=== PATIENT | female | born 1955 | race Caucasian/White ===

== ENCOUNTER → 2018-09-17 | Outpatient (CLI) | payer OTHER ==
--- NOTE | 2018-09-17 13:03 | Diagnostic Imaging Report ---
Exam: KUB - 2 views Clinical History: Renal calculus. Comparison: None. Findings: No specific evidence of nephrolithiasis. There is a 1.1 cm hyperdensity adjacent to the left L3 transverse process. No evidence of calcification overlying the kidneys. A hyperdensity overlying the left mid kidney is favored to represent detector artifact. Calcified phleboliths in the pelvis. Nonobstructive bowel gas pattern. No acute osseous abnormality. Impression: A 1.1 cm hyperdensity adjacent to the left L3 transverse process may represent a ureteral stone. Signed by: Dr. Cande Sanchez MD on 09/17/2018 1:00 PM
== END ==
LOC: RAD 11:16
PROVIDERS: ATTEND Urology
DX: N20.0 Calculus of kidney (principal)
CPT/HCPCS: 74018

== ENCOUNTER → 2019-03-11 | Day surgery (SDC) | payer OTHER ==
[2019-03-08 12:18] LABS: ANION GAP 10.4 mmol/L (8-16); BLOOD UREA NITROGEN 16 mg/dL (7-26); BUN/CREATININE RATIO 21 (6-25); CALCIUM 9.2 mg/dL (8.4-10.2); CARBON DIOXIDE 29 mmol/L (22-29); CHLORIDE 102 mmol/L (98-107); CREATININE, SERUM 0.78 mg/dL (0.57-1.11); EST GLOMERULAR FILTRATION RATE > 60 ML/MIN (60-); GLUCOSE 86 mg/dL (74-118); POTASSIUM 3.4 mmol/L (3.5-5.1); SODIUM 138 mmol/L (136-145)
[~2019-03-11] MED LIST: ALLERGY RELIEF10 M4 PO; ATORVASTATIN CA10 MG PO; BUPIVACAINE HCL 0.5% INJ 30 ML VIAL INJ ONE; CLINDAMYCIN 600MG / 50ML 50 ML IV ONE; DEXAMETHASONE SOD PHOS INJ 4 MG/ML VIAL ONE; HYDROCHLOROTHIA25 MG PO; IBANDRONATE SO150 MG PO; LIDOCAINE 2%/ EPINEPHRINE 20ML MDV ONE; LIDOCAINE HCL 2% LOCAL INJ 5 ML SDV VIAL INJ ONE; LISINOPRIL2.5 MG PO; MIDAZOLAM HCL 2 MG/2 ML VIAL ONE; MYRBETRIQ50 MG PO; ONDANSETRON HCL INJ 2MG/ML 2ML 2 MG/ML VIAL ONE; PIPER-TAZ 3.375 GM 50 ML ONE; PROPOFOL IV EMULSION 10 MG/ML 20 ML VIAL ONE; ROCURONIUM BROMIDE 10 MG/ML 5ML VIAL ONE; SEVOFLURANE INHAL SOLN 250 ML PEN BTL ONE; SUCCINYLCHOLINE CHLORIDE 20 MG/ML 10ML VIAL ONE
--- OUTSIDE RECORDS SUMMARY | 2019-03-11 10:34 | XMS REPORT | Summary of Care ---
Author Author [facility] Organization [facility] Address Unknown Phone Unavailable Care Team Providers Care Retirement Plan Counselor Name Role Phone Kecia Hurtado MD [employer] [employer] [facility] Reason for Visit * Reason Comments Follow Up Encounter Details Care Team Description Date Type Department Xander Junior NP [address] [place] [address] Follow Up 12/24/2018 Office Visit [facility] [address]; [address] [place] [address] Allergies No Known Allergiesdocumented as of this encounter (statuses as of 12/24/2018) Medications End Date Status Medication Sig Dispensed Refills Start Date Active ibandronate (BONIVA) 150 Take 150 mg 0 MG tablet by mouth every 30 days. Active lisinopril (PRINIVIL, Take 5 mg by 0 ZESTRIL) 5 MG tablet mouth daily. Active pravastatin (PRAVACHOL) Take 1 Tab by 0 20 MG tablet mouth daily. 9 Active ALENDRONATE SODIUM OR Take 1 Tab by 0 mouth every 30 days. Active cetirizine,ZYRTEC, 10 MG 0 tablet 9 Active Multiple Take by 0 Vitamins-Minerals (EYE mouth. VITAMINS) CAPS Active Walton-3 Fatty Acids (FISH Take by 0 OIL OR) mouth. Active hydrochlorothiazide TAKE 1 1 (MICROZIDE) 12.5 MG CAPSULE BY 9 capsule MOUTH ONCE DAILY Active Mirabegron ER (MYRBETRIQ) Take by 0 50 MG TB24 mouth. documented as of this encounter (statuses as of 12/24/2018) Active Problems Problem Noted Date LIDA (obstructive sleep apnea) 01/04/2018 Last Assessment & Plan: Download reviewed and discussed with patient - Excellent use and control of obstructive events. Some pressure capping noted on most nights, low amount of time spent at minimum pressure - will increase pressures to 7-14 cm H2O to address this and residual AHI. Patient appreciates and acknowledges the benefit from CPAP on sleep quality and daytime function. Patient commended on use and encouraged to continue Setting change - Autotitrating CPAP @ 7-14 cm H2O documented as of this encounter (statuses as of 12/24/2018) Social History Date Tobacco Use Types Packs/Day Years Used Quit: 1990 Former Smoker Smokeless Tobacco: Former User Drinks/Week oz/Week Comments Alcohol Use Yes Sex Assigned at Date Recorded Not on file Industry Job Start Date Occupation Not on file Not on file Not on file Travel End Travel History Travel Start No recent travel history available. documented as of this encounter Last Filed Vital Signs Reading Time Taken Comments Vital Sign 120/60 12/24/2018 11:16 AM CDT Blood Pressure 74 12/24/2018 11:16 AM CDT Pulse 36.3 C (97.3 F) 12/24/2018 11:16 AM CDT Temperature 16 12/24/2018 11:16 AM CDT Respiratory Rate - - Oxygen Saturation - - Inhaled Oxygen Concentration 84.5 kg (186 lb 4.8 oz) 12/24/2018 11:16 AM CDT Weight 157.5 cm (5' 2") 12/24/2018 11:16 AM CDT Height 34.07 12/24/2018 11:16 AM CDT Body Mass Index documented in this encounter Patient Instructions * Patient Instructions* Xander Junior NP - 12/24/2018 11:40 AM CDT 1. If you have any problems with the new pressure settings, please call the clin ic and let us know - we can change the settings back remortely if we need to documented in this encounter Progress Notes * Xander Junior NP - 12/24/2018 11:40 AM CDT Patient with the following Sleep problems: 1. LIDA on CPAP 2. Insomnia 3. Excessive Daytime Sleepiness Patient of Dr. Mcfarland's since 10/2017. At her initial visit she reported daytime sleepiness, tiredenss, and that she had previously had a diagnostic and titrati on study (04/27/17- Outside PSG- AHI 18.5, RDI 22, SaO2 anival 85%. Baseline Epwort h-13. Titration was unavailable). Dr. Mcfarland ordered Autotitrating CPAP @ 6-12 c m H2O. The patient also reported difficulty sleeping at night and Dr. Mcfarland pro vided her sleep hygiene recommendations and handouts to her. 06/2018 - The patient showed excellent compliance, excellent control of LIDA, and reported benefit from CPAP. The patient reported that her insomnia had improved with sleep hygiene improvements (no longer checking email & social media in bed). The patient did report that she was more sleepy for some reason (ESS 15) Since then has been on Autotitrating CPAP @ 6-12 cm H2O Uses nasal mask Humidifier at 5 Interval History: Has been doing well, has surgery for kidney stone removal scheduled with Dr. Tomlinson pel January 14. Currently, BT at 10-11PM, falls asleep in 1 hour, will read in bed until then, wakes up 1-2 times per night due to nocturia - easily back to sleep. Gets up at 7AM , TST average 6-7 hrs Wakes up feeling "good, no problems". Reports rare AM headaches - typically reso lve quickly, Denies AM dry mouth Reports no snoring or witnessed apneas on PAP Has no problems with mask or pressure Daytime functioning: reports occassional daytime sleepiness. difficulties Does take naps - 2-3 x/week, after lunch or in the morning, .5 - 1 hour, refresh ing, no CPAP Reports occassional nasal congestion - reports mild improvement with Zyrtec, kellogg s not want to try Flonase. Denies nasal bleeding, dryness Patient reports benefit from CPAP: "My sleep is more restful" ESS: [place] Sleepiness Scale (0=Never, 1=Rarely, 2=Frequently, 3=always) Sitting and reading: Rarely Watching TV: Rarely Sitting inactive in a public place: Never Car passenger for an hour : Rarely Lying down to rest in the afternoon: Frequently Sitting and talking to someone: Rarely Sitting quietly after lunch without alcohol: Never In a car, while stopped for a few minutes: Rarely [place] Score: 7 Compliance report : Compliance Summary 11/21/2018 - 12/20/2018 (30 days) Days with Device Usage 30 days Days without Device Usage 0 days Percent Days with Device Usage 100.0% Cumulative Usage 7 days 18 hrs. 21 mins. 47 secs. Maximum Usage (1 Day) 7 hrs. 48 mins. 14 secs. Average Usage (All Days) 6 hrs. 12 mins. 43 secs. Average Usage (Days Used) 6 hrs. 12 mins. 43 secs. Minimum Usage (1 Day) 2 hrs. 28 mins. 58 secs. Percent of Days with Usage >=4 Hours 96.7% Percent of Days with Usage < 4 Hours 3.3% Date Range Total Blower Time 7 days 18 hrs. 22 mins. Average AHI 3.1 Auto-CPAP Summary Auto-CPAP Mean Pressure 9.6 cmH2O Auto-CPAP Peak Average Pressure 11.3 cmH2O Average Device Pressure <=90% of Time 11.4 cmH2O Average Time in Large Leak Per Day 18 secs. Device Settings as of 12/20/2018 AutoCPAP - A-Flex Device Settings Device Mode Parameter Value Min Pressure 6 cmH2O Max Pressure 12 cmH2O A-Flex Setting 3 Auto Off Off Auto On On View Optional Screens On Ramp Type Off Mask Resistance Off Mask Resistance Lock Off Tubing Type 15 HT Tubing Type Lock Off Opti-Start On EZ-Start Disabled Tube Temperature Off Humidifier 5 Humidification Mode on Heated Tube Disconnect Adaptive Past Medical History: Diagnosis Date HLD (hyperlipidemia) HTN (hypertension) LIDA (obstructive sleep apnea) Osteopenia Past Surgical History: Procedure Laterality Date HX HYSTERECTOMY Current Outpatient Medications: ALENDRONATE SODIUM OR, Take 1 Tab by mouth every 30 days., Disp: , Rfl: cetirizine,ZYRTEC, 10 MG tablet, , Disp: , Rfl: ibandronate (BONIVA) 150 MG tablet, Take 150 mg by mouth every 30 days., Di sp: , Rfl: lisinopril (PRINIVIL, ZESTRIL) 5 MG tablet, Take 5 mg by mouth daily., Disp : , Rfl: Multiple Vitamins-Minerals (EYE VITAMINS) CAPS, Take by mouth., Disp: , Rf l: Walton-3 Fatty Acids (FISH OIL OR), Take by mouth., Disp: , Rfl: pravastatin (PRAVACHOL) 20 MG tablet, Take 1 Tab by mouth daily., Disp: , R fl: Family History Problem Relation Name Age of Onset Stroke Father Social History Socioeconomic History Marital status: Spouse name: Not on file Number of children: Not on file Years of education: Not on file Highest education level: Not on file Occupational History Not on file Social Needs Financial resource strain: Not on file Food insecurity: Worry: Not on file Inability: Not on file Transportation needs: Medical: Not on file Non-medical: Not on file Tobacco Use Smoking status: Former Smoker Quit date: 1990 Years since quittin.6 Smokeless tobacco: Former User Substance and Sexual Activity Alcohol use: Yes Drug use: No Sexual activity: Not on file Lifestyle Physical activity: Days per week: Not on file Minutes per session: Not on file Stress: Not on file Relationships Social connections: Talks on phone: Not on file Gets together: Not on file Attends anabaptist service: Not on file Active member of club or organization: Not on file Attends meetings of clubs or organizations: Not on file Relationship status: Not on file Intimate partner violence: Fear of current or ex partner: Not on file Emotionally abused: Not on file Physically abused: Not on file Forced sexual activity: Not on file Other Topics Concerns: Not on file Social History Narrative Not on file ROS Vital Signs Height: 5' 2" (157.5 cm) Weight - Scale: 186 lb 4.8 oz (84.5 kg) Temp: 97.3 F (36.3 C) Temp Source: Oral Pulse: 74 Respirations: 16 BP: 120/60 Patient Position: Sitting BP Location: left arm Oxygen Therapy O2 Sat: 93 % O2 Flow Rate: Room Air Height and Weight BSA (Calculated - sq m): 1.92 sq meters BMI (Calculated): 34.1 Predicted Body Weight: 110.45 Physical Exam Problem List Items Addressed This Visit LIDA (obstructive sleep apnea) - Primary Download reviewed and discussed with patient - Excellent use and control of ob structive events. Some pressure capping noted on most nights, low amount of time spent at minimum pressure - will increase pressures to 7-14 cm H2O to address t his and residual AHI. Patient appreciates and acknowledges the benefit from CPAP on sleep quality and daytime function. Patient commended on use and encouraged to continue Setting change - Autotitrating CPAP @ 7-14 cm H2O Relevant Orders PAP SETTING CHANGE PAP SUPPLIES documented in this encounter Plan of Treatment Care Team Description Date Type Specialty Xander Junior NP [address] [place] [address] [phone] 07/01/2019 Office Visit Sleep Center Order Schedule Name Type Priority Associated Diagnoses Ordered: 12/24/2018 PAP SETTING CHANGE General Supply Routine LIDA (obstructive sleep apnea) Ordered: 12/24/2018 PAP SUPPLIES General Supply Routine LIDA (obstructive sleep apnea) Health Maintenance Due Date Last Done Comments COLON CANCER SCREENIN1957 COLONOSCOPY MAMMOGRAM ANNUAL 1957 TETANUS SHOT (ADULT) 1972 BMI FOLLOW UP PLAN 06/19/1975 HEPATITIS C SCREENING 06/19/1975 HIV SCREENING 06/19/1975 CERVICAL CANCER SCREENING 1978 3 YEAR FOLLOW UP FLU VACCINE > 6 MONTHS Addressed 12/24/2018 (Declined), 05/01/2018 Overridden with the (Declined) intention of not completing the topic documented as of this encounter Results Not on filedocumented in this encounter Visit Diagnoses Diagnosis LIDA (obstructive sleep apnea) - Primary Obstructive sleep apnea (adult) (pediatric) documented in this encounter Insurance Type Payer Benefit Subscriber ID Effective Phone Address Plan / Dates Group [facility] - xxxxxxxxxxx 2018-P [address] [address] documented as of this encounter
--- OUTSIDE RECORDS SUMMARY | 2019-03-11 10:34 | XMS REPORT ---
Author Author [facility] Address Unknown Phone Unavailable Care Team Providers Care Protective Officer Name Role Phone REGIS BURRELL Unavailable Unavailable Problems This patient has no known problems. Allergies, Adverse Reactions, Alerts This patient has no known allergies or adverse reactions. Medications This patient has no known medications. Results Test Description Test Time Test Comments Text Results Atomic Results Result Comments ABDOMEN-1VIEW (KUB) 2018-09-17 12:55:00 [place] [address] Patient Name: FRANK MARC MR #: [id number] : 1955 Age/Sex: 63/F Req #: [id number] Adm Physician: Ordered by: REGIS BURRELL MD Report #: [id number] Location: [facility] Room/Bed: Procedure: [id number] DX/ABDOMEN-1VIEW (KUB) Exam Date: 09/17/18 Exam Time: 1149 REPORT STATUS: Signed Exam: KUB - 2 views Clinical History: Renal calculus. Comparison: None. Findings: No specific evidence of nephrolithiasis. There is a 1.1 cm hyperdensity adjacent to the left L3 transverse process. No evidence of calcification overlying the kidneys. A hyperdensity overlying the left mid kidney is favored to represent detector artifact. Calcified phleboliths in the pelvis. Nonobstructive bowel gas pattern. No acute osseous abnormality. Impression: A 1.1 cm hyperdensity adjacent to the left L3 transverse process may represent a ureteral stone. Signed by: Dr. Joanne Alcantara MD on 09/17/2018 1:00 PM Dictated By: JOANNE ALCANTARA MD 1300 Transcribed By: ARMANI on 09/17/18 1300 COPY TO: REGIS BURRELL MD
[2019-03-11 13:10] VITALS: BP 110/64
--- NOTE | 2019-04-24 03:56 | Operative Report ---
DATE OF PROCEDURE: 03/11/2019 SURGEON: Garrett Luz MD PREOPERATIVE DIAGNOSIS: Refractory urge incontinence. POSTOPERATIVE DIAGNOSIS: Refractory urge incontinence. OPERATIONS PERFORMED: 1. Complete InterStim system implantation with incision and implantation of tined quadripolar lead electrodes into the left foramen S3. 2. Fluoroscopic guidance for needle placement. 3. Subcutaneous implantation of sacral nerve neurostimulator. 4. Electronic analysis and complex programming. ANESTHESIA: General. COMPLICATIONS: None. CLINICAL SUMMARY: Ileana Whitney is a 63-year-old woman with refractory urge incontinence. She has failed medications. She has had a good response to an outpatient InterStim percutaneous test with greater than 50% improvement and decrease of symptomatology. She elected to proceed with permanent implantation. She understands the risks of bleeding, infection, injury to adjacent structures. Actually, she will have permanent implant that requires followup with potential surgical revision. She is aware of the risks and elected to proceed. OPERATIVE PROCEDURE IN DETAIL: Informed consent was verified. Ileana Whitney was properly identified, taken to the operating room, where anesthesia was uneventfully begun. The patient was then carefully gently repositioned in the prone position with all pressure points carefully well padded. Pillows were placed under the shins to allow the toes to dangle freely and under the lower abdomen to flatten the sacrum. The patient's back and buttocks were prepared and draped in the usual sterile fashion. A needle was then introduced into the left foramen S3. It was tested as we monitored for the depth of needle fluoroscopically. We looked for direct observation of lifting of the perineum and plantar flexion of the great toe utilizing the external stimulator. The needle stylet was then removed and directional guide wire was then placed and confirmed fluoroscopically. The foramen needle was then removed. An incision was made peripherally to the directional guide. The dilator and introducer sheath were then placed over the directional guidewire and directed into the foramen until the opaque marker of the dilator was seen midway through the sacrum. The dilator obturator was unlocked and removed and the lead was then placed through the introducer sheath to the first white line. Position was checked fluoroscopically. The lead was then further introduced until three electrodes were visible anterior to the sacrum. All the electrodes were tested with similar findings as noted above. After satisfactory positioning was confirmed under continuous fluoroscopy, the introducer sheath was retracted thus deploying the lead tines to the parasacral tissue. Further incision was then made in the subcutaneous tissue posterior to the iliac crest and a pocket was created. The tunneling tool was then utilized to bring the lead from its incision to the pocket site. The lead was cleansed of bodily fluids with sterile water and dried thoroughly. It was then inserted into the InterStim pulse generator header with the metal bands aligned and the blue tip clearly visible in the distal portion of the pulse generator header. The single set screw was tightened with the hex wrench. Copious irrigation was performed of all incisions. Infiltration of local anesthesia was done around the incisions as well. The generator was then placed in subcutaneous pocket and the programming head was placed over the implanted neurostimulator. The impedance parameters were verified and were in acceptable limits. The patient's incisions were then approximated in 2 layers utilizing absorbable suture. Mastisol and Steri-Strips were applied. Bioclusive dressings were applied. The patient was then uneventfully reversed from anesthesia and taken to the recovery room in stable condition. There were no complications to the procedure. She tolerated the procedure well. Sponge, needle, and instrument counts were correct x2 at the end of the case. Using the clinician program, the patient was then programmed to the lead of optimum sensation and given explicit instructions on utilization of her new equipment. Plans will be to follow the patient up in the office in approximately 1 month to check the impedance and perhaps reprogram her InterStim. Garrett Luz MD [place]/MODJoe /[id number]
== END | disposition home or self-care (01) ==
LOC: OR 10:31
PROVIDERS: ATTEND Urology
DX: N39.41 Urge incontinence (principal); I10 Essential (primary) hypertension; M19.90 Unspecified osteoarthritis, unspecified site; M81.0 Age-related osteoporosis without current pathological fracture; G47.33 Obstructive sleep apnea (adult) (pediatric); K21.9 Gastro-esophageal reflux disease without esophagitis; N20.0 Calculus of kidney; Z01.810 Encounter for preprocedural cardiovascular examination; Z01.812 Encounter for preprocedural laboratory examination
CPT/HCPCS: 36415; 76000; 80048; 93005; C1778; C1894; J0330; J1100; J2001; J2250; J2405; J2543; L8679

== ENCOUNTER → 2023-02-23 | Day surgery (SDC) | payer OTHER ==
[2023-02-21 11:49] LABS: BASOPHILS % 0.7 % (0.0-1.0); EOSINOPHILS # (AUTO) 0.1 (0.0-0.4); EOSINOPHILS % 2.1 % (0.0-6.0); HEMATOCRIT 37.1 % (34.2-44.1); HEMOGLOBIN 12.2 g/dL (12.0-16.0); LYMPHOCYTES # (AUTO) 1.8 (1.0-3.2); LYMPHOCYTES % 32.1 % (18.0-39.1); MEAN CORPUSCULAR HEMOGLOBIN 30.4 pg (28-32); MEAN CORPUSCULAR HGB CONC 32.9 g/dL (31-35); MEAN CORPUSCULAR VOLUME 92.5 fL (81-99); MONOCYTES # (AUTO) 0.5 (0.2-0.8); MONOCYTES % 8.9 % (4.4-11.3); NEUTROPHILS # (AUTO) 3.2 (2.1-6.9); PLATELET COUNT 226 x10e3/uL (140-360); RED BLOOD COUNT 4.01 x10e6/uL (3.6-5.1); RED CELL DISTRIBUTION WIDTH 12.6 % (11.7-14.4); WHITE BLOOD COUNT 5.64 x10e3/uL (4.8-10.8)
[~2023-02-23] MED LIST changes: -BUPIVACAINE HCL 0.5% INJ 30 ML VIAL INJ ONE; +CALCIUM600 MG PO; -CLINDAMYCIN 600MG / 50ML 50 ML IV ONE; +CONTRAVE ER 8-1 EACH PO; -DEXAMETHASONE SOD PHOS INJ 4 MG/ML VIAL ONE; +FAMOTIDINE 20 MG/2 ML VIAL IV ONE; +FENTANYL CITRATE/PF 100MCG/2 ML INJ ONE; +FISH OIL 1,0001 EAC7 PO; +GLYCOPYRROLATE INJ 0.2 MG/ML VIAL ONE; +LACTATED RINGER'S 1,000 ML ONE; -LIDOCAINE 2%/ EPINEPHRINE 20ML MDV ONE; +LOSARTAN POTASS25 MG PO; +MAGNESIUM OXID400 MG PO; +METOCLOPRAMIDE HCL 10 MG/2ML VIAL ONE; -MIDAZOLAM HCL 2 MG/2 ML VIAL ONE; -ONDANSETRON HCL INJ 2MG/ML 2ML 2 MG/ML VIAL ONE; -PIPER-TAZ 3.375 GM 50 ML ONE; -ROCURONIUM BROMIDE 10 MG/ML 5ML VIAL ONE; -SEVOFLURANE INHAL SOLN 250 ML PEN BTL ONE; -SUCCINYLCHOLINE CHLORIDE 20 MG/ML 10ML VIAL ONE; +VIT C PO
[2023-02-23 08:52] VITALS: TEMP 97.5
[2023-02-23 09:20] VITALS: BP 119/69; PULSE 67; RESP 17; O2SAT 96
== END | disposition home or self-care (01) ==
LOC: OR 06:12
PROVIDERS: ATTEND Internal Medicine Gastroenterology
DX: K21.00 Gastro-esophageal reflux disease with esophagitis, without bleeding (principal); K22.70 Barrett's esophagus without dysplasia; K44.9 Diaphragmatic hernia without obstruction or gangrene; K29.50 Unspecified chronic gastritis without bleeding; K31.A11 Gastric intestinal metaplasia without dysplasia, involving the antrum; I45.10 Unspecified right bundle-branch block; I10 Essential (primary) hypertension; E78.5 Hyperlipidemia, unspecified; G47.33 Obstructive sleep apnea (adult) (pediatric); Z79.899 Other long term (current) drug therapy
CPT/HCPCS: 36415; 43239; 85025; 88305; 88342; 93005; J2001; J2704; J2765; J3010; J7121

== ENCOUNTER → 2024-02-22 | Day surgery (SDC) | payer OTHER ==
[2024-02-19 11:57] LABS: BASOPHILS % 0.6 % (0.0-1.0); EOSINOPHILS # (AUTO) 0.2 (0.0-0.4); EOSINOPHILS % 2.6 % (0.0-6.0); HEMOGLOBIN 12.9 g/dL (12.0-16.0); LYMPHOCYTES # (AUTO) 2.2 (1.0-3.2); LYMPHOCYTES % 35.7 % (18.0-39.1); MEAN CORPUSCULAR HEMOGLOBIN 30.4 pg (28-32); MEAN CORPUSCULAR HGB CONC 31.5 g/dL (31-35); MEAN CORPUSCULAR VOLUME 96.7 fL (81-99); MONOCYTES # (AUTO) 0.5 (0.2-0.8); MONOCYTES % 8.6 % (4.4-11.3); NEUTROPHILS # (AUTO) 3.2 (2.1-6.9); NEUTROPHILS % 52.3 % (38.7-80.0); PLATELET COUNT 282 x10e3/uL (140-360); RED BLOOD COUNT 4.24 x10e6/uL (3.6-5.1); RED CELL DISTRIBUTION WIDTH 12.3 % (11.7-14.4); WHITE BLOOD COUNT 6.17 x10e3/uL (4.8-10.8)
[~2024-02-22] MED LIST changes: -FAMOTIDINE 20 MG/2 ML VIAL IV ONE; -FENTANYL CITRATE/PF 100MCG/2 ML INJ ONE; -GLYCOPYRROLATE INJ 0.2 MG/ML VIAL ONE; -LACTATED RINGER'S 1,000 ML ONE; -LIDOCAINE HCL 2% LOCAL INJ 5 ML SDV VIAL INJ ONE; -METOCLOPRAMIDE HCL 10 MG/2ML VIAL ONE; +OZEMPIC2 MG/0.75 SQ; +PANTOPRAZOLE SO40 MG PO
[2024-02-22] MEDS: LACTATED RINGER'S 1,000 ML ONE (08:38)
[2024-02-22 10:44] VITALS: BP 121/61; PULSE 64; RESP 18; O2SAT 98
== END | disposition home or self-care (01) ==
LOC: OR 07:19
PROVIDERS: ATTEND Internal Medicine Gastroenterology
DX: Z09 Encounter for follow-up examination after completed treatment for conditions other than malignant neoplasm (principal); Z86.0100 Personal history of colon polyps, unspecified; K64.8 Other hemorrhoids; K21.9 Gastro-esophageal reflux disease without esophagitis; G47.33 Obstructive sleep apnea (adult) (pediatric); I10 Essential (primary) hypertension; R32 Unspecified urinary incontinence; Z88.0 Allergy status to penicillin; Z88.8 Allergy status to other drugs, medicaments and biological substances; Z01.810 Encounter for preprocedural cardiovascular examination; Z01.812 Encounter for preprocedural laboratory examination; Z79.85 Long-term (current) use of injectable non-insulin antidiabetic drugs; Z79.899 Other long term (current) drug therapy; Z68.28 Body mass index [BMI] 28.0-28.9, adult; Z96.82 Presence of neurostimulator; Z87.891 Personal history of nicotine dependence
CPT/HCPCS: 36415; 45378; 85025; 93005; J2704; J7121